=== PATIENT | female | born 1950 | race Two or more races ===

== ENCOUNTER 2022-08-25 10:50 | Emergency (ER) | payer OTHER ==
[~2022-08-25] VITALS: Ht 167.6 cm; Wt 95.4 kg
[2022-08-25 13:42] VITALS: BP 131/93
[2022-08-25] MEDS ORDERED: ACETAMINOPHEN 500 MG TAB PO ONE (14:00)
[2022-08-25 15:07] LABS: Basophils # (auto) 0.1 10 ^3/uL (0-0.2); Basophils % (auto) 0.7 % (0.0-2.0); Eosinophils # (auto) 0 10 ^3/uL (0-0.8); Eosinophils % (auto) 0.2 % (0.0-7.0); Hematocrit 39.1 % (36.0-46.0); Lymphocytes # (auto) 1.5 10 ^3/uL (0.4-5.4); Lymphocytes % (auto) 11.7 % (10.0-50.0); Mean Corpuscular Hemoglobin 27.3 pg (28.0-32.0); Mean Corpuscular Hgb Conc. 33.2 g/dL (32.0-36.0); Mean Corpuscular Volume 82.1 fL (80.0-100.0); Monocytes # (auto) 0.6 10 ^3/uL (0-1.3); Monocytes % (auto) 4.5 % (0.0-12.0); Neutrophils # (auto) 10.7 10 ^3/uL (1.6-8.6); Neutrophils % (auto) 82.9 % (37.0-80.0); Red Blood Cells 4.76 10^6/uL (4.0-5.20); Red Cell Distribution Width 13.7 % (11.8-14.3); White Blood Cell 12.9 10^3/uL (4.4-10.8)
[2022-08-25 15:09] LABS: Urine Bacteria None Seen /hpf (None Seen)
[2022-08-25 15:25] LABS: Albumin 3.7 g/dL (3.4-5.0); BUN/Creatinine Ratio 18.5; Calcium 9.3 mg/dL (8.5-10.1); Potassium 4.1 mmol/L (3.5-5.1)
[2022-08-25 15:28] LABS: Bilirubin, Total 0.5 mg/dL (0.2-1.0); Total Protein 7.6 g/dL (6.4-8.2)
[2022-08-25 16:20] LABS: Urine Specific Gravity 1.015 (1.001-1.035)
[2022-08-25 16:21] LABS: Urine Blood 1+ /uL (Negative)
[2022-08-25 16:23] LABS: Urine Ca Carbonate Crystal None Seen /hpf (None Seen); Urine WBC Clumps 0-2 /hpf (None Seen)
[2022-08-25 16:24] LABS: Urine Amorphous Sediment None Seen /hpf; Urine Budding Yeast None Seen /hpf (None Seen); Urine Fine Granular Cast None Seen /lpf; Urine Hyaline Cast None Seen /lpf (0 - 2); Urine Mucus None Seen (None Seen); Urine Sperm None Seen /hpf (None Seen)
[2022-08-25 16:25] LABS: Urine Amorphous Crystal None Seen /hpf (None Seen); Urine WBC >100 /hpf (0 - 5)
[2022-08-25] MEDS ORDERED: ACET1CAP14 PO (16:36)
[2022-08-25] MEDS ORDERED: LEVO750T64 PO (16:36)
[2022-08-25] MEDS ORDERED: cefTRIAXone SOD 1,000 MG VL IM ONE (16:45)
== END 2022-08-25 16:37 | disposition home or self-care (01) ==
LOC: ER 10:50
DX: N39.0 Urinary tract infection, site not specified (principal); Z20.822 Contact with and (suspected) exposure to COVID-19
CPT/HCPCS: 36415; 71046; 74176; 80053; 81001; 83605; 85025; 87040; 87086; 87088; 87186; 87426; 87804; 96372; 99285; J0696